=== PATIENT | male | born 1975 | race Caucasian/White ===

== ENCOUNTER 2024-07-29 04:35 | Emergency (ER) | payer MEDICAID, SELFPAY ==
[2024-07-29 04:35] VITALS: BMI 41.8
[2024-07-29 04:53] VITALS: BP 127/84; PULSE 105; RESP 19; TEMP 37.3; O2SAT 96
--- NOTE | 2024-07-29 04:56 | PD.EDRME ---
Rapid Medical Screening Exam RME Arrival date/time: 07/29/24 04:35 49 year old male present to ED for c/o of left side pain. I have greeted and performed a focused initial assessment of this patient. A comprehensive ED assessment and evaluation of the patient, analysis of all test results, and completion of the medical decision making process will be conducted by additional ED providers. Chief Complaint: General Adult/Misc Complain Time Seen by Provider: 07/29/24 04:39 Vital signs: Vital Signs Temperature 99.1 F 07/29/24 04:53 Pulse Rate 105 H 07/29/24 04:53 Respiratory Rate 19 07/29/24 04:53 Blood Pressure 127/84 07/29/24 04:53 Pulse Oximetry (%) 96 07/29/24 04:53 Oxygen Delivery Method Room Air 07/29/24 04:53
[2024-07-29] MEDS: CYCLObenzaPRINE 5 MG TABLET PO (05:02)
[2024-07-29] MEDS: LIDOCAINE 5% 1 PATCH TOP ×2 (05:02→13:53)
[2024-07-29 05:18] LABS: Collection Type, Urine Voided; RBC,Urine 0 /hpf (0-3); Squamous Epithelial Cell,Urine 0 /hpf (0-5); WBC,Urine 0 /hpf (0-5)
[2024-07-29 05:25] LABS: Bacteria,Urine Rare; Bilirubin,Urine Negative (Negative); Blood,Urine Negative (Negative); Clarity,Urine Turbid (Clear/Hazy); Color,Urine Yellow (Lt Yel-Yel); Glucose, Urine Negative (Negative); Ketones,Urine Negative (Negative); Leukocyte Esterase,Urine Negative (Negative); Nitrite,Urine Negative (Negative); PH,Urine 7.5 (5.0-7.0); Protein,Urine 1+ (Neg - Trace)
[2024-07-29 12:55] VITALS: BP 135/85; PULSE 90; RESP 18; TEMP 36.9; O2SAT 96
--- NOTE | 2024-07-29 13:07 | EDNOTE_ITS ---
ED General RME/HPI General Chief complaint: General Adult/Misc Complain Stated complaint: LEFT SIDE PAIN Time Seen by Provider: 07/29/24 04:39 Arrival date/time: 07/29/24 04:35 This is a 49-year-old male that comes in with complaints of left buttock pain that radiates down his left posterior leg. Patient states that it sometimes hurts to walk. Patient denies any trauma. Patient has had this pain before and it typically goes away on its own. Patient denies any loss of bowel or bladder function. Patient denies any urinary symptoms. Patient denies any past medical history. RME / HPI RME / HPI narrative: 07/29/24 04:35 49 year old male present to ED for c/o of left side pain. I have greeted and performed a focused initial assessment of this patient. A comprehensive ED assessment and evaluation of the patient, analysis of all test results, and completion of the medical decision making process will be conducted by additional ED providers. Related Data Previous Rx's ?Medication ?Instructions ?Recorded naloxone 4 mg/actuation nasal 4 mg intranasal Q3M PRN opioid 12/12/20 spray (Narcan) overdose #2 ea cyclobenzaprine 10 mg tablet 10 mg PO BID #14 tabs 07/29/24 ibuprofen 800 mg tablet 800 mg PO Q6H PRN pain #14 tabs 07/29/24 Allergies Allergy/AdvReac Type Severity Reaction Status Date / Time No Known Allergies Allergy Verified 07/29/24 04:38 Review of Systems Review of Systems Systems Reviewed: All systems reviewed, normal except as documented Past Medical History Past Medical History CARDIAC: Negative Congestive Heart Failure RESPIRATORY: Negative Chronic Obstructive Pulmonary Disease (COPD) GENITOURINARY: Negative Renal Disease ENDOCRINE: Negative Diabetes Mellitus Type 1 or Diabetes Mellitus Type 2 Social History SMOKING STATUS: Never smoker Travel History EBOLA RISK: No ED Exam General General appearance: Present alert and in no apparent distress Head Head exam: Present atraumatic Eye Eye exam: Present normal appearance, PERRL and EOMI ENT ENT exam: Present normal exam, normal oropharynx and mucous membranes moist Neck Neck exam: Present normal inspection, full ROM and trachea midline Chest Chest inspection: Present normal inspection and symmetric chest wall rise Respiratory Respiratory exam: Present normal lung sounds bilaterally Cardiovascular Cardiovascular exam: Present regular rate, normal rhythm and normal heart sounds Abdominal Exam Abdominal exam: Present soft Extremities Exam Extremities exam: Present normal inspection and full ROM Back Exam Back exam: Present normal inspection and full ROM Neurological Exam Neurological exam: Present alert, oriented X3 and CN II-XII intact Psychiatric Psychiatric exam: Present normal affect and normal mood Skin Skin exam: Present warm, dry, intact and normal color Course Quality Measures none Orders Category Date Time Status UA [Urinalysis] Stat Lab 07/29/24 05:00 Completed CYCLObenzaPRINE [Flexeril] Med 07/29/24 13:18 Discontinued 10 mg PO X1 ONE CYCLObenzaPRINE [Flexeril] Med 07/29/24 04:56 Discontinued 5 mg PO X1 ONE HYDROcodone*/APAP 5/325 [[place] 5/325] Med 07/29/24 13:18 Discontinued 2 tab PO X1 ONE Ibuprofen Tab [Motrin Tab] Med 07/29/24 13:18 Discontinued 800 mg PO X1 ONE Ketorolac Inj [Toradol Inj] Med 07/29/24 04:56 Discontinued 30 mg IM X1 ONE Lidocaine 5% Patch Med 07/29/24 04:56 Discontinued 1 patch TOP X1 ONE Lidocaine 5% Patch Med 07/29/24 13:18 Discontinued 1 patch TOP X1 ONE Vital Signs Vital signs: Vital Signs Temperature 99.1 F 07/29/24 04:53 Pulse Rate 105 H 07/29/24 04:53 Respiratory Rate 19 07/29/24 04:53 Blood Pressure 127/84 07/29/24 04:53 Pulse Oximetry (%) 96 07/29/24 04:53 Oxygen Delivery Method Room Air 07/29/24 04:53 [facility] Patient data External records reviewed:: [facility] previous records Clinical information provided by:: patient Social determinants that could affect healthcare access:: none Patient has the following chronic illnesses:: none How is presenting disease/condition affected by chronic disease/condition?: no chronic disease Evaluation data The following diagnostics were reviewed and interpreted by me:: lab results Lab and/or radiology exams considered but not ordered:: none Interpretation Summary: see note Medications Medications considered but not ordered:: none Medication administrations:: Medication Administration History Discontinued Medications Hydrocodone Bitart/Acetaminophen (Hydrocodone/Apap 5/325 Tablet) 2 tab PO X1 ONE Stop: 07/29/24 13:19 Last Admin: 07/29/24 13:51 Dose: 2 tab Documented By: VLADIMIR Cyclobenzaprine HCl (Cyclobenzaprine 5 Mg Tablet) 5 mg PO X1 ONE Stop: 07/29/24 04:57 Last Admin: 07/29/24 05:02 Dose: 5 mg Documented By: DAYANARA Cyclobenzaprine HCl (Cyclobenzaprine 5 Mg Tablet) 10 mg PO X1 ONE Stop: 07/29/24 13:19 Last Admin: 07/29/24 13:52 Dose: 10 mg Documented By: VLADIMIR Ibuprofen (Ibuprofen Tab 400 Mg Tablet) 800 mg PO X1 ONE Stop: 07/29/24 13:19 Last Admin: 07/29/24 13:52 Dose: 800 mg Documented By: VLADIMIR Ketorolac Tromethamine (Ketorolac Inj 60 Mg/2 Ml Vial) 30 mg IM X1 ONE Stop: 07/29/24 04:57 Last Admin: 07/29/24 05:02 Dose: Not Given Documented By: DAYANARA Non-Admin Reason: Patient Refused Comments: Pt refused d/t fear of needles. Lidocaine (Lidocaine 5% 1 Patch) 1 patch TOP X1 ONE Stop: 07/29/24 04:57 Last Admin: 07/29/24 05:02 Dose: 1 patch Documented By: DAYANARA Lidocaine (Lidocaine 5% 1 Patch) 1 patch TOP X1 ONE Stop: 07/29/24 13:19 Last Admin: 07/29/24 13:53 Dose: 1 patch Documented By: VLADIMIR none Consultations Consultation(s) initiated? (list below): No Diagnosis Differential Diagnosis ED Complaint MDM: uti, kidney stones, backpain Most likely diagnosis given after review of the tests above:: back pain Admission Indicated Admission indicated?: not indicated Explain why admission is indicated or not indicated:: not needed, pt improved Admission Request Was there a request for admission?: No Disposition Plan Disposition Plan: Discharge Discharge Attestation Discharge Attestation: The patient and all family members were given an opportunity to ask questions and understood the discharge instructions. Discharge instructions specifically effects, indications for sooner follow up or return to the emergency department, and the expected course of current diagnosis. Patient condition: Stable Medical Decision Making MDM Narrative MDM Narrative: Urinalysis unremarkable. Patient given Toradol previously and then was given ibuprofen Flexeril and [place]. Patient reports that his back pain is better. Patient told to follow-up with primary provider in 1 to 2 days. Come back to the emergency room if symptoms change or worsen. Differential Diagnosis Differential Diagnosis: uti, kidney stones, backpain Lab Data Labs: Lab Results 07/29/24 Range/Units 05:00 Ur Collection Type Voided Urine Color Yellow (Lt Yel-Yel) Urine Clarity Turbid A (Clear/Hazy) Urine pH 7.5 H (5.0-7.0) Ur Specific [place] 1.030 (1.001-1.035) Urine Protein 1+ A (Neg - Trace) Urine Glucose (UA) Negative (Negative) Urine Ketones Negative (Negative) Urine Blood Negative (Negative) Urine Nitrite Negative (Negative) Urine Bilirubin Negative (Negative) Urine Urobilinogen (Auto) 2.0 (0.0-1.0) mg/dL Ur Leukocyte Esterase Negative (Negative) Urine RBC 0 (0-3) /hpf Urine WBC 0 (0-5) /hpf Ur Squamous Epith Cells 0 (0-5) /hpf Urine Bacteria Rare (None) Discharge Plan Plan Patient Disposition: HOME (Self Care) Patient condition on transfer: Stable Prescriptions/Referrals Prescriptions/Med Rec: New ibuprofen 800 mg tablet 800 mg PO Q6H PRN (Reason: pain) Qty: 14 0RF cyclobenzaprine 10 mg tablet 10 mg PO BID Qty: 14 0RF No Action Narcan 4 mg/actuation spray,non-aerosol 4 mg intranasal Q3M PRN (Reason: opioid overdose) Qty: 2 0RF Rx Instructions: spray 1 dose into ONE nostril; alternate nostrils w each dose until help arrives Referrals: No Primary/Family,Physician [Primary Care Provider] - In 1 week Problem List Clinical Impression: Back pain Patient/Caregiver Discharge Instructions Discharge Activity: activity as tolerated Education Materials: ED Back Pain (Acute or Chronic) Additional Instructions: Follow-up with primary provider in 1 to 2 days. Come back to the emergency room if symptoms change or worsen. Print Language: Citizen [place] Stand Alone Forms: [place] Award Info., Patient Portal Info Letter PA/MEDICAL INSURANCE CLERK Supervising Physician PA/MEDICAL INSURANCE CLERK Supervising Physician: [email or web address]
[2024-07-29] MEDS: HYDROcodone/APAP 5/325 TABLET 2 TAB PO (13:51)
[2024-07-29] MEDS: CYCLObenzaPRINE 5 MG TABLET 10 MG PO (13:52)
[2024-07-29] MEDS: IBUPROFEN TAB 400 MG TABLET 800 MG PO (13:52)
== END 2024-07-29 14:18 | disposition home or self-care (01) ==
PROVIDERS: Physician Assistant; Emergency Provider Emergency Medicine
DX: M54.9 Dorsalgia, unspecified (principal)
CPT/HCPCS: 81001; 99283; A9270